=== PATIENT | male | born 1980 ===

== ENCOUNTER 2018-06-08 14:31 | Emergency (ER) | payer OTHER ==
[2018-06-08 14:37] VITALS: O2SAT 99
--- NOTE | 2018-06-08 15:52 | ED PDOC ---
Lower Extremity Pain/Injury Time Seen by Provider: 06/08/18 15:45 Chief Complaint (Nursing): Flu-like Symptoms Chief Complaint (Provider): lower extremitiy History Per: Patient History/Exam Limitations: no limitations Onset/Duration Of Symptoms: Days (x2) Current Symptoms Are (Timing): Still Present Additional Complaint(s): 38 year old male with no significant pmHx, presents to ED with pain, redness, and swelling of his right foot for 2 days. He additionally reports a subjective fever but denies any injury to affect area. PCP: Dr. Rakan Vargas Past Medical History Reviewed: Historical Data, Nursing Documentation, Vital Signs Vital Signs: Last Vital Signs Temp 98.4 F 06/08/18 14:36 Pulse 79 06/08/18 14:36 Resp 16 06/08/18 14:36 BP 123/80 06/08/18 14:36 Pulse Ox 99 06/08/18 14:36 - Medical History PMH: No Chronic Diseases - Surgical History Surgical History: No Surg Hx - Family History Family History: States: Unknown Family Hx - Home Medications Home Medications: Ambulatory Orders Medication Instructions Recorded Ibuprofen [Motrin Tab] 600 mg PO Q6 PRN #15 tab 06/05/16 Naproxen [Naprosyn] 500 mg PO Q12H #20 tab 06/08/18 Sulfamethoxazole/Trimethoprim 1 tab PO BID #20 tab 06/08/18 [Bactrim DS 800 mg-160 mg] - Allergies Allergies/Adverse Reactions: Allergies Allergy/AdvReac Type Severity Reaction Status Date / Time No Known Allergies Allergy Verified 06/05/16 10:08 Review of Systems ROS Statement: Except As Marked, All Systems Reviewed And Found Negative Constitutional: Positive for: Fever (subjective) Musculoskeletal: Positive for: Foot Pain (right-sided with redness and swelling) Physical Exam - Reviewed Nursing Documentation Reviewed: Yes Vital Signs Reviewed: Yes - Physical Exam Appears: Positive for: Non-toxic, No Acute Distress Pulses-Dorsalis Pedis (L): 2+ Pulses-Dorsalis Pedis (R): 2+ Extremity: Positive for: Tenderness (right dorsal foot on palpation), Swelling ( right dorsal foot with erythema and warmth), Other (right dorsal foot with erythema, edema, warmth ). Negative for: Deformity (right foot) Neurologic/Psych: Positive for: Alert, Oriented. Negative for: Motor/Sensory Deficits - Laboratory Results Result Diagrams: 06/08/18 16:22 06/08/18 16:22 - ECG O2 Sat by Pulse Oximetry: 99 (RA) Pulse Ox Interpretation: Normal Medical Decision Making Medical Decision Making: Time: 154 Initial Plan: Rule out cellulitis vs. gout. Will obtain CBC, CMP, and uric acid. Scribe Attestation: Documented by Joanne Whalen, acting as a scribe for Alexy Saldivar MD. Provider Scribe Attestation: All medical record entries made by the Scribe were at my direction and personally dictated by me. I have reviewed the chart and agree that the record accurately reflects my personal performance of the history, physical exam, medical decision making, and the department course for this patient. I have also personally directed, reviewed, and agree with the discharge instructions and disposition. Disposition - Clinical Impression Clinical Impression: Cellulitis - Patient ED Disposition Is Patient to be Admitted: No Counseled Patient/Family Regarding: Studies Performed, Diagnosis, Need For Followup, Rx Given - Disposition Referrals: [facility] [Outside] Disposition: Routine/Home Disposition Time: 16:49 Condition: FAIR Prescriptions: Naproxen [Naprosyn] 500 mg PO Q12H #20 tab Sulfamethoxazole/Trimethoprim [Bactrim DS 800 mg-160 mg] 1 tab PO BID #20 tab Instructions: Cellulitis and Erysipelas (Skin Infections) Forms: MUBI (German) Print Language: POLISH
[2018-06-08 16:30] LABS: BASO % 0.4 % (0.0-2.0); EOS # 0.1 K/uL (0.0-0.7); EOS % 0.5 % (0.0-4.0); HEMOGLOBIN 15.8 g/dL (12.0-18.0); LYMPH # 3.5 K/uL (1.0-4.3); LYMPH % 30.7 % (20.0-40.0); MEAN CELL VOLUME 94.7 fl (80.0-94.0); MEAN CORPUSCULAR HEMOGLOBIN 32.8 pg (27.0-31.0); MEAN CORPUSCULAR HGB CONC 34.6 g/dL (33.0-37.0); MEAN PLATELET VOLUME 8.2 fl (7.2-11.7); MONO # 0.7 K/uL (0.0-0.8); MONO % 6.1 % (0.0-10.0); NEUT # 7.1 K/uL (1.8-7.0); NEUT % 62.3 % (50.0-75.0); RBC 4.83 Mil/uL (4.40-5.90); RED CELL DISTRIBUTION WIDTH 12.9 % (11.5-14.5); WHITE BLOOD COUNT 11.5 K/uL (4.8-10.8)
[2018-06-08 16:40] LABS: ALB/GLOB RATIO 1.1 (1.0-2.1); ALBUMIN 4.4 g/dL (3.5-5.0); ALT/SGPT 135 U/L (21-72); AST/SGOT 83 U/L (17-59); BLOOD UREA NITROGEN 11 mg/dl (9-20); CALCIUM 9.7 mg/dL (8.4-10.2); GFR NON-AFRICAN AMERICAN > 60; URIC ACID 7.9 mg/Dl (3.5-8.5)
[2018-06-08 17:32] VITALS: BP 125/86; PULSE 73; RESP 18; TEMP 98.5
== END 2018-06-08 17:31 | disposition home or self-care (01) ==
LOC: H.ER 14:31
DX: L03.115 Cellulitis of right lower limb (principal)